=== PATIENT | female | born 1990 | race Hispanic/Latino ===

== ENCOUNTER 2017-10-10 11:45 | Emergency (ER) | payer BC, OTHER ==
[2017-10-10] MEDS ORDERED: CEFTRIAXONE SODIUM 1 GM ONE (12:17)
[2017-10-10] MEDS ORDERED: LIDOCAINE HCL-MPF 1% 2ML VIAL ONE (12:17)
[2017-10-10] MEDS ORDERED: IBUPROFEN 600 MG TABLET ONE (12:31)
== END 2017-10-10 13:31 | disposition home or self-care (01) ==
LOC: EDH 11:45
DX: J02.0 Streptococcal pharyngitis (principal)
CPT/HCPCS: 81025; 96372; 99283; J0696; J3490

== ENCOUNTER → 2019-10-02 | Outpatient (CLI) | payer OTHER | END | disposition home or self-care (01) | LOC: RAH 11:03 | PROVIDERS: ATTEND Family Medicine | DX: Z13.6 Encounter for screening for cardiovascular disorders (principal) | CPT/HCPCS: 75571 ==